=== PATIENT | female | born 1955 | race Caucasian/White ===

== ENCOUNTER 2016-11-05 19:21 | Observation (INO) | payer OTHER ==
[~2016-11-05] VITALS: Ht 152.4 cm; Wt 71.8 kg
[~2016-11-05 19:21] MED LIST: FIORICET 50-301 EACH PO; MOTRIN800 MG PO; NAPROSYN500 MG PO; PRILOSEC40 MG PO; ZOFRAN4 MG PO
[2016-11-05 20:05] LABS: HEMATOCRIT 37.8 % (36.0-46.0); MCH 28.4 PG (29.0-34.0); MCHC 33.3 G/DL (30.0-36.0); MCV 85.1 FL (83-99); MEAN PLAT.VOLUME 9.1 uM^3 (9.5-12.4); PLATELET COUNT 283 K/uL (156-360); RBC DIS.WIDTH-CV 13.3 % (11.8-14.6); RBC DIS.WIDTH-SD 40.2 % (39-53); RED BLOOD COUNT 4.44 M/uL (3.80-5.20); WHITE BLOOD COUNT 9.5 K/uL (4.1-10.2)
[2016-11-05 20:17] LABS: CHLORIDE 103 mEq/L (99-109); POTASSIUM 3.6 mEq/L (3.7-5.4); SODIUM 139 mEq/L (136-147)
[2016-11-05 20:20] LABS: GLUCOSE 101 mg/dL (70-99)
[2016-11-05 20:21] LABS: ANION GAP 14 MEQ/L (2-14)
[2016-11-05 20:22] LABS: TOTAL BILIRUBIN 0.3 mg/dL (0.0-1.0)
[2016-11-05 20:23] LABS: ALKALINE PHOSPHATASE 65 IU/L (3-129); GFR ESTIMATE (CALCULATED) > 59 mL/min/
[2016-11-05 20:24] LABS: UREA NITROGEN (BUN) 12 mg/dL (9-23)
[2016-11-05 21:33] LABS: TROP-I INTERPRETATION NEGATIVE; TROPONIN-I < 0.01 ng/mL (0.0-0.30)
[2016-11-05] MEDS ORDERED: SIMVASTATIN80 MG PO (21:40)
[2016-11-05] MEDS ORDERED: VITAMIN D2000 UNI1 PO (21:40)
[2016-11-05] MEDS ORDERED: METFORMIN HCL500 MG PO (21:41)
[2016-11-05] MEDS ORDERED: CALCIUM CITRAT1 EA18 PO (21:41)
[2016-11-05] MEDS ORDERED: ZOLOFT100 MG PO (21:41)
[2016-11-05] MEDS ORDERED: LOVAZA1 GM PO (21:46)
[2016-11-05] MEDS ORDERED: ALENDRONATE SOD35 MG PO (21:47)
[2016-11-05] MEDS ORDERED: COZAAR25 MG PO (21:47)
[2016-11-05 22:30] LABS: INFLUENZA A VIRAL ANTIGEN NEGATIVE; INFLUENZA B VIRAL ANTIGEN NEGATIVE
[2016-11-06 01:00] VITALS: BP 138/78
[2016-11-06 01:04] VITALS: BP 138/78
[2016-11-06 04:09] LABS: TROP-I INTERPRETATION NEGATIVE; TROPONIN-I < 0.01 ng/mL (0.0-0.30)
[2016-11-06 07:48] VITALS: BP 135/82
[2016-11-06 10:02] LABS: TROP-I INTERPRETATION NEGATIVE; TROPONIN-I < 0.01 ng/mL (0.0-0.30)
[2016-11-06] MEDS ORDERED: PROTONIX20 MG PO (11:25)
[2016-11-06] MEDS ORDERED: LEVO-T25 MCG PO (11:25)
[2016-11-06] MEDS ORDERED: ADVAIR 250/501 DISK IH (11:27)
[2016-11-06] MEDS ORDERED: PROAIR HFA8.5 GM IH (11:27)
[2016-11-06] MEDS ORDERED: VERAMYST10 GM BOTH NARES (11:28)
[2016-11-06 12:10] VITALS: BP 156/86
[2016-11-06] MEDS ORDERED: ZOFRAN4 MG PO (12:57)
[2016-11-06] MEDS ORDERED: 24HOUR ALLERGY10 MG PO (12:57)
== END 2016-11-06 15:52 | disposition home or self-care (01) ==
LOC: EME 19:21 → 5WEST 23:42 → EDOF 23:42 → 5WEST 11-06 00:47
PROVIDERS: Emergency Medicine; Physician Assistant
DX: R07.89 Other chest pain (principal); J02.8 Acute pharyngitis due to other specified organisms; I10 Essential (primary) hypertension; E11.9 Type 2 diabetes mellitus without complications; Z82.49 Family history of ischemic heart disease and other diseases of the circulatory system; Z79.84 Long term (current) use of oral hypoglycemic drugs; Z88.5 Allergy status to narcotic agent; Z88.6 Allergy status to analgesic agent; Z88.2 Allergy status to sulfonamides
CPT/HCPCS: 70450; 71020; 80053; 81003; 83605; 84484; 85027; 87040; 87502; 93005; 99281; 99285; G0378; J1200; J1650; J2765; J7030

== ENCOUNTER 2017-07-20 15:11 | Emergency (ER) | payer OTHER ==
[~2017-07-20] VITALS: Ht 152.4 cm; Wt 74.9 kg
[~2017-07-20 15:11] MED LIST changes: +24HOUR ALLERGY10 MG PO; +ADVAIR 250/501 DISK IH; +ALENDRONATE SOD35 MG PO; +CALCIUM CITRAT1 EA18 PO; +COZAAR25 MG PO; +LEVO-T25 MCG PO; +LOVAZA1 GM PO; +METFORMIN HCL500 MG PO; +PROAIR HFA8.5 GM IH; +PROTONIX20 MG PO; +SIMVASTATIN80 MG PO; +VERAMYST10 GM BOTH NARES; +VITAMIN D2000 UNI1 PO; +ZOLOFT100 MG PO
[2017-07-20 17:50] LABS: HEMATOCRIT 37.1 % (36.0-46.0); MCH 28.4 PG (29.0-34.0); MCHC 33.4 G/DL (30.0-36.0); MCV 84.9 FL (83-99); MEAN PLAT.VOLUME 9.1 uM^3 (9.5-12.4); PLATELET COUNT 283 K/uL (156-360); RBC DIS.WIDTH-CV 12.6 % (11.8-14.6); RBC DIS.WIDTH-SD 38.9 % (39-53); RED BLOOD COUNT 4.37 M/uL (3.80-5.20)
[2017-07-20 17:58] LABS: CHLORIDE 105 mEq/L (99-109); POTASSIUM 3.8 mEq/L (3.7-5.4); SODIUM 140 mEq/L (136-147)
[2017-07-20 18:00] LABS: GLUCOSE 128 mg/dL (70-99)
[2017-07-20 18:01] LABS: ANION GAP 15 MEQ/L (2-14)
[2017-07-20 18:04] LABS: GFR ESTIMATE (CALCULATED) > 59 mL/min/
[2017-07-20 18:05] LABS: UREA NITROGEN (BUN) 15 mg/dL (9-23)
[2017-07-20] MEDS ORDERED: ZOFRAN ODT4 MG PO (18:22)
[2017-07-20] MEDS ORDERED: NAPROSYN500 MG PO (18:22)
[2017-07-20 19:02] VITALS: BP 154/94
== END 2017-07-20 19:13 | disposition home or self-care (01) ==
LOC: EME 15:11
PROVIDERS: Nurse Practitioner Family
DX: F07.81 Postconcussional syndrome (principal); M79.672 Pain in left foot; W01.198A Fall on same level from slipping, tripping and stumbling with subsequent striking against other object, initial encounter; Z85.828 Personal history of other malignant neoplasm of skin; I10 Essential (primary) hypertension; R73.03 Prediabetes; K21.9 Gastro-esophageal reflux disease without esophagitis; J45.909 Unspecified asthma, uncomplicated; F32.9 Major depressive disorder, single episode, unspecified; Z79.84 Long term (current) use of oral hypoglycemic drugs; Z87.891 Personal history of nicotine dependence
CPT/HCPCS: 70450; 73630; 80048; 85027; 99281; 99285; J1885